=== PATIENT | female | born 1955 | race Caucasian/White ===

== ENCOUNTER 2018-03-26 16:49 | Emergency (ER) | payer OTHER ==
[~2018-03-26] VITALS: Ht 175.3 cm; Wt 118.4 kg
[~2018-03-26 16:49] MED LIST: ADVIL100 MG; ALBU90I INH; ALBU90OI; ALBU90OI INH; ALBU90OI61 INH; AZIT500 PO; Ativan1 MG PO; Atrovent Inha12.9 GM INH; BUSP10 PO; BUSP15 PO; CAND4; CAND4 PO; CEPH500 PO; CIPR500 PO; CYAN1000I; CYCL10 PO; DIAZ5 PO; DIPH50 PO; DOXY100 PO; DULO60 PO; EXTRA STRENGTH500 MG PO; Estradiol0.5 MG PO; Estradiol2 MG PO; FLUSAL2505 IH; FLUSAL5005 IH; HYDACE5 PO; HYDGUAL120 PO; IBUP200; IBUP400 PO; IBUP600 PO; IBUP800 PO; LEVFLO500 PO; LEVSOD50 PO; LEVSOD75 PO; LIPOZENE PO; LOSA25 PO; LOVA20 PO; MELO7.5 PO; METF500 PO; METO50 PO; MULVITMIND PO; NAPR500 PO; NICO7 TOP; Neurontin300 MG PO; OMEP20ER PO; OXYACE5T PO; OXYACE7.5T PO; OXYC5 PO; PARO10 PO; PHENA200 PO; PRED10 PO; PRED20 PO; Percocet 5-3251 EACH PO; Prednisone50 MG PO; Questran4 GM GT; ROXICODONE5 MG PO; RXHYDACE PO; SULTRIDS PO; TRAM50 PO; TRAZ100 PO; TRAZ150T57 PO; VENL75ER PO; Zithromax250 MG PO; [UNRECOGNIZED DRUG - OTHER]; [UNRECOGNIZED DRUG - OTHER]; [UNRECOGNIZED DRUG - OTHER] PO; [UNRECOGNIZED DRUG - REMARK]
== END 2018-03-26 19:32 | disposition home or self-care (01) ==
LOC: ER 16:49
DX: R51 Headache (principal); E11.9 Type 2 diabetes mellitus without complications; E78.00 Pure hypercholesterolemia, unspecified; F17.200 Nicotine dependence, unspecified, uncomplicated; Z88.0 Allergy status to penicillin; Z88.6 Allergy status to analgesic agent; Z79.899 Other long term (current) drug therapy; Z79.84 Long term (current) use of oral hypoglycemic drugs; Z79.52 Long term (current) use of systemic steroids
CPT/HCPCS: 96372; 99283; J0780; J1200; J1885

== ENCOUNTER → 2018-04-13 | Outpatient (CLI) | payer OTHER | END | disposition home or self-care (01) | LOC: LAB SHORT 16:14 → LAB SRC 16:14 | DX: Z51.81 Encounter for therapeutic drug level monitoring (principal); Z79.899 Other long term (current) drug therapy | CPT/HCPCS: G0480 ==

== ENCOUNTER 2018-09-24 10:03 | Day surgery (SDC) | payer OTHER ==
[~2018-09-24] VITALS: Ht 152.4 cm; Wt 117.2 kg
[~2018-09-24 10:03] MED LIST changes: +FURO20; +LOSA25; +POTA10T; +PREG100; +ROSU5; +STIOLTO RESPIMAT4 GM; +Zantac150 MG
== END 2018-09-24 14:00 | disposition home or self-care (01) ==
LOC: ORSCSDS 10:03
PROVIDERS: Internal Medicine Gastroenterology
PROC: 0DB88ZX Excision of Small Intestine, Via Natural or Artificial Opening Endoscopic, Diagnostic (ICD-10-PCS; principal; 2018-09-24 11:30)
PROC: 0DBN8ZX Excision of Sigmoid Colon, Via Natural or Artificial Opening Endoscopic, Diagnostic (ICD-10-PCS; principal; 2018-09-24 11:30)
PROC: 0DB98ZX Excision of Duodenum, Via Natural or Artificial Opening Endoscopic, Diagnostic (ICD-10-PCS; principal; 2018-09-24 11:30)
PROC: 0DBE8ZX Excision of Large Intestine, Via Natural or Artificial Opening Endoscopic, Diagnostic (ICD-10-PCS; principal; 2018-09-24 11:30)
DX: R19.4 Change in bowel habit (principal); D12.0 Benign neoplasm of cecum; K31.7 Polyp of stomach and duodenum; K64.8 Other hemorrhoids; Z86.010 Personal history of colon polyps; K92.1 Melena; G47.33 Obstructive sleep apnea (adult) (pediatric); Z80.0 Family history of malignant neoplasm of digestive organs; E78.5 Hyperlipidemia, unspecified; F41.8 Other specified anxiety disorders; J44.9 Chronic obstructive pulmonary disease, unspecified; E03.9 Hypothyroidism, unspecified; I10 Essential (primary) hypertension; F17.210 Nicotine dependence, cigarettes, uncomplicated; E66.9 Obesity, unspecified; Z68.42 Body mass index [BMI] 45.0-49.9, adult; E11.9 Type 2 diabetes mellitus without complications; Z79.84 Long term (current) use of oral hypoglycemic drugs; Z79.899 Other long term (current) drug therapy
CPT/HCPCS: 82947; 88305; J2250; J2765; J7120

== ENCOUNTER 2019-06-07 13:08 | Emergency (ER) | payer OTHER ==
[~2019-06-07] VITALS: Ht 162.6 cm; Wt 120.2 kg
== END 2019-06-07 14:05 | disposition home or self-care (01) ==
LOC: ER 13:08
DX: S50.01XA Contusion of right elbow, initial encounter (principal); E11.9 Type 2 diabetes mellitus without complications; F17.210 Nicotine dependence, cigarettes, uncomplicated; Z88.0 Allergy status to penicillin; Z88.8 Allergy status to other drugs, medicaments and biological substances; Z79.899 Other long term (current) drug therapy; Z79.84 Long term (current) use of oral hypoglycemic drugs; Z79.52 Long term (current) use of systemic steroids; W19.XXXA Unspecified fall, initial encounter
CPT/HCPCS: 73080; 99283-25

== ENCOUNTER → 2020-06-19 | Outpatient (CLI) | payer OTHER ==
[2020-06-21 16:11] LABS: HPV 16 Negative (Negative); HPV 18 Negative (Negative); HPV OTHER HR TYPES Negative (Negative)
== END ==
LOC: LAB SHORT 18:47 → LAB 18:47
PROVIDERS: Nurse Practitioner Family
DX: Z12.4 Encounter for screening for malignant neoplasm of cervix (principal)
CPT/HCPCS: 87624; G0123

== ENCOUNTER 2020-08-01 09:00 | Day surgery (SDC) | payer OTHER ==
[~2020-08-01] VITALS: Ht 162.6 cm; Wt 130.9 kg
[~2020-08-01 09:00] MED LIST changes: +BISM300CH PO; -BUSP15 PO; +CYCLOBENZAPRINE5 MG PO; +ESTRADIOL0.5 MG PO; +FLUT.05NI; -FURO20; +FURO20 PO; -LOSA25; -POTA10T; +POTA10T PO; -PREG100; +PREG100 PO; -ROSU5; +ROSU5 PO; +Ranitidine HCl150 M1 PO; +STIOLTO RESPIMAT4 G1 INH; -STIOLTO RESPIMAT4 GM; -Zantac150 MG
--- NOTE | 2020-08-01 10:58 | NUR ---
08/01/[address] NOTIFIED THAT PATIENTS BP IS 87/51. INSTRUCTIONS GIVEN TO GIVE PATIENT THE REST OF HER IV FLUIDS, WHICH IS ABOUT 100ML. WILL CONTINUE TO MONITOR BP. IF PATIENT FEELS OK, SHE CAN BE DISCHARGED HOME.
== END 2020-08-01 11:20 | disposition home or self-care (01) ==
LOC: ORSCSDS 09:00
PROVIDERS: Anesthesiology
PROC: 3E0R33Z Introduction of Anti-inflammatory into Spinal Canal, Percutaneous Approach (ICD-10-PCS; principal; 2020-08-01 10:00)
DX: M50.122 Cervical disc disorder at C5-C6 level with radiculopathy (principal); F17.210 Nicotine dependence, cigarettes, uncomplicated; E78.00 Pure hypercholesterolemia, unspecified; F41.9 Anxiety disorder, unspecified; I10 Essential (primary) hypertension; G47.33 Obstructive sleep apnea (adult) (pediatric); E66.01 Morbid (severe) obesity due to excess calories; Z68.43 Body mass index [BMI] 50.0-59.9, adult; E11.9 Type 2 diabetes mellitus without complications; J44.9 Chronic obstructive pulmonary disease, unspecified; Z79.899 Other long term (current) drug therapy; Z79.84 Long term (current) use of oral hypoglycemic drugs
CPT/HCPCS: J1040; J2250; J3010

== ENCOUNTER 2020-10-22 15:42 | Emergency (ER) | payer OTHER ==
[~2020-10-22] VITALS: Ht 162.6 cm; Wt 129.3 kg
[2020-10-22 16:41] LABS: BASOPHILS ABSOLUTE AUTO 0.04 K/mm3 (0.00-0.23); BASOPHILS PERCENT AUTO 1 % (0-2); EOSINOPHILS ABSOLUTE AUTO 0.18 K/mm3 (0.00-0.68); EOSINOPHILS PERCENT AUTO 3 % (0-6); Hematocrit 42.3 % (33.0-51.0); Hemoglobin 13.6 g/dL (11.5-16.0); IMMATURE GRAN ABSOLUTE AUTO 0.05 K/mm3 (0.00-0.10); IMMATURE GRAN PERCENT AUTO 1 % (0-1); LYMPHOCYTES ABSOLUTE AUTO 1.41 K/mm3 (0.84-5.20); LYMPHOCYTES PERCENT AUTO 23 % (21-46); MONOCYTES ABSOLUTE AUTO 0.54 K/mm3 (0.16-1.47); MONOCYTES PERCENT AUTO 9 % (4-13); Mean Corpuscular HGB 29.9 pg (26.0-34.0); Mean Corpuscular HGB Conc 32.2 g/dL (31.5-36.5); Mean Corpuscular Volume 93 fL (80-100); NEUTROPHILS ABSOLUTE AUTO 3.89 K/mm3 (1.96-9.15); NEUTROPHILS PERCENT AUTO 64 % (41-73); RDW Coefficient Variation 13.6 % (11.7-14.2); RDW Standard Deviation 46.9 fL (35.1-46.3); Red Blood Cell Count 4.55 M/mm3 (3.80-5.20); White Blood Cell Count 6.11 K/mm3 (4.00-11.30)
[2020-10-22 16:44] LABS: Alanine Aminotransfer (ALT/SGP 15 U/L (12-78); Albumin, Blood 2.9 g/dL (3.4-5.0); Albumin/Globulin Ratio 0.6 (0.8-1.8); Alk Phos 118 U/L (50-136); Anion Gap 8 mmol/L (6-16); Aspartate Aminotrans (AST/SGOT 20 U/L (12-37); Bilirubin, Total 0.5 mg/dL (0.1-1.0); Blood Urea Nitrogen 7 mg/dL (8-24); Bun/Creatinine Ratio 10.8 (12.0-20.0); CO2, Blood 24 mmol/L (21-32); Calcium, Blood 8.8 mg/dL (8.5-10.1); Chloride, Blood 103 mmol/L (98-108); Creatinine, Blood 0.65 mg/dL (0.40-1.00); Globulin, Blood 4.6 g/dL (2.2-4.0); Glomerular Filtration Rate >60 (60-); Glucose, Blood 129 mg/dL (70-99); Sodium, Blood 135 mmol/L (136-145); Total Protein, Blood 7.5 g/dL (6.4-8.2)
[2020-10-22 17:00] LABS: Mean Platelet Volume 10.6 fL (9.1-12.4); Platelet Count 242 K/mm3 (150-400)
== END 2020-10-22 17:21 | disposition home or self-care (01) ==
LOC: ER 15:42
PROVIDERS: Physician Assistant
DX: G89.18 Other acute postprocedural pain (principal); E11.9 Type 2 diabetes mellitus without complications; E78.00 Pure hypercholesterolemia, unspecified; F17.210 Nicotine dependence, cigarettes, uncomplicated; Z88.0 Allergy status to penicillin; Z88.6 Allergy status to analgesic agent; Z79.899 Other long term (current) drug therapy
CPT/HCPCS: 36415; 80053; 85025; 99283

== ENCOUNTER 2021-10-11 11:09 | Day surgery (SDC) | payer OTHER ==
[~2021-10-11] VITALS: Ht 162.6 cm; Wt 142.3 kg
== END 2021-10-11 12:50 | disposition home or self-care (01) ==
LOC: ORSCSDS 11:09
PROVIDERS: Internal Medicine Gastroenterology
PROC: 0DBL8ZX Excision of Transverse Colon, Via Natural or Artificial Opening Endoscopic, Diagnostic (ICD-10-PCS; principal; 2021-10-11 12:15)
PROC: 0DBE8ZX Excision of Large Intestine, Via Natural or Artificial Opening Endoscopic, Diagnostic (ICD-10-PCS; principal; 2021-10-11 12:15)
DX: Z12.11 Encounter for screening for malignant neoplasm of colon (principal); Z86.010 Personal history of colon polyps; K21.9 Gastro-esophageal reflux disease without esophagitis; D12.3 Benign neoplasm of transverse colon; Z87.19 Personal history of other diseases of the digestive system; Z80.0 Family history of malignant neoplasm of digestive organs; K64.8 Other hemorrhoids; K57.30 Diverticulosis of large intestine without perforation or abscess without bleeding; G47.33 Obstructive sleep apnea (adult) (pediatric); Z87.891 Personal history of nicotine dependence; J44.9 Chronic obstructive pulmonary disease, unspecified; I12.9 Hypertensive chronic kidney disease with stage 1 through stage 4 chronic kidney disease, or unspecified chronic kidney disease; N18.9 Chronic kidney disease, unspecified; E11.9 Type 2 diabetes mellitus without complications; F41.8 Other specified anxiety disorders; E66.01 Morbid (severe) obesity due to excess calories
CPT/HCPCS: 82947; 88305; J0461; J2405; J2704; J7120

== ENCOUNTER 2022-02-13 18:19 | Emergency (ER) | payer OTHER ==
[~2022-02-13] VITALS: Ht 162.6 cm; Wt 137.9 kg
[2022-02-13 19:20] LABS: BASOPHILS ABSOLUTE AUTO 0.03 K/mm3 (0.00-0.23); BASOPHILS PERCENT AUTO 1 % (0-2); EOSINOPHILS ABSOLUTE AUTO 0.12 K/mm3 (0.00-0.68); EOSINOPHILS PERCENT AUTO 3 % (0-6); Hematocrit 42.6 % (33.0-51.0); Hemoglobin 13.3 g/dL (11.5-16.0); IMMATURE GRAN ABSOLUTE AUTO 0.02 K/mm3 (0.00-0.10); IMMATURE GRAN PERCENT AUTO 1 % (0-1); LYMPHOCYTES ABSOLUTE AUTO 0.87 K/mm3 (0.84-5.20); LYMPHOCYTES PERCENT AUTO 20 % (21-46); MONOCYTES ABSOLUTE AUTO 0.36 K/mm3 (0.16-1.47); MONOCYTES PERCENT AUTO 8 % (4-13); Mean Corpuscular HGB 30.1 pg (26.0-34.0); Mean Corpuscular HGB Conc 31.2 g/dL (31.5-36.5); Mean Corpuscular Volume 96 fL (80-100); Mean Platelet Volume 10.6 fL (9.1-12.4); NEUTROPHILS PERCENT AUTO 67 % (41-73); Platelet Count 193 K/mm3 (150-400); RDW Coefficient Variation 13.4 % (11.7-14.2); Red Blood Cell Count 4.42 M/mm3 (3.80-5.20)
[2022-02-13 19:38] LABS: Albumin, Blood 3.2 g/dL (3.4-5.0); Albumin/Globulin Ratio 0.8 (0.8-1.8); Bilirubin, Total 0.4 mg/dL (0.1-1.0); Bun/Creatinine Ratio 19.8 (12.0-20.0); Calcium, Blood 9.2 mg/dL (8.5-10.1); Creatinine, Blood 0.76 mg/dL (0.40-1.00); Globulin, Blood 3.8 g/dL (2.2-4.0); Potassium, Blood 4.2 mmol/L (3.5-5.5)
== END 2022-02-13 22:47 | disposition home or self-care (01) ==
LOC: ER 18:19
PROVIDERS: Emergency Medicine
DX: R07.89 Other chest pain (principal); E11.9 Type 2 diabetes mellitus without complications; J44.9 Chronic obstructive pulmonary disease, unspecified; Z99.81 Dependence on supplemental oxygen; Z87.891 Personal history of nicotine dependence
CPT/HCPCS: 36415; 71045; 80053; 84484; 85025; 93005; 93010; 99285-25

== ENCOUNTER 2022-04-16 10:23 | Emergency (ER) | payer OTHER ==
[~2022-04-16] VITALS: Ht 162.6 cm; Wt 135.6 kg
[2022-04-16] MEDS ORDERED: NYSTATIN100000 U10 MT (11:05)
[2022-04-16] MEDS ORDERED: Zithromax250 MG PO (12:01)
[2022-05-06] MEDS ORDERED: Cleocin HCl300 MG PO (23:08)
[2022-05-06] MEDS ORDERED: Monodox100 MG PO (23:08)
== END 2022-04-16 12:22 | disposition home or self-care (01) ==
LOC: ER 10:23
DX: J44.1 Chronic obstructive pulmonary disease with (acute) exacerbation (principal); B37.0 Candidal stomatitis; E11.9 Type 2 diabetes mellitus without complications; F17.210 Nicotine dependence, cigarettes, uncomplicated; Z88.6 Allergy status to analgesic agent; Z88.0 Allergy status to penicillin; Z79.84 Long term (current) use of oral hypoglycemic drugs; Z79.899 Other long term (current) drug therapy
CPT/HCPCS: 71046; 99283-25

== ENCOUNTER → 2022-07-07 | Outpatient (CLI) | payer OTHER ==
[~2022-07-07] MED LIST changes: +Cleocin HCl300 MG PO; +Monodox100 MG PO; +NYSTATIN100000 U10 MT
== END | disposition home or self-care (01) ==
LOC: LAB 12:15 → LAB SHORT 12:15
DX: R19.5 Other fecal abnormalities (principal)
CPT/HCPCS: 82653

== ENCOUNTER 2022-09-14 10:43 | Emergency (ER) | payer OTHER ==
[~2022-09-14] VITALS: Ht 162.6 cm; Wt 130.6 kg
[2022-09-14] MEDS ORDERED: DOXY100 PO (14:23)
== END 2022-09-14 14:32 | disposition home or self-care (01) ==
LOC: ER 10:43
DX: L02.214 Cutaneous abscess of groin (principal); E11.9 Type 2 diabetes mellitus without complications; F17.210 Nicotine dependence, cigarettes, uncomplicated; Z88.0 Allergy status to penicillin; Z79.899 Other long term (current) drug therapy
CPT/HCPCS: A9270

== ENCOUNTER 2022-09-17 08:42 | Day surgery (SDC) | payer OTHER ==
[~2022-09-17] VITALS: Ht 162.6 cm; Wt 129.0 kg
[2022-09-17] MEDS ORDERED: Aspir 8181 MG PO (09:01)
--- NOTE | 2022-09-17 09:17 | NUR ---
CALL LIGHT IN REACH; PT'S HAS VISITORS IN ROOM.
--- NOTE | 2022-09-17 13:28 | NUR ---
PT RETURNED TO RECOVERY ROOM IN BED. RIGHT RADIAL TR BAND SITE SOFT NON-TENDER WITH NO HEMATOMA, NO PULSATILE BLEEDING AND WRIST BOARD IN PLACE. PT DENIES CHEST PAIN. CALL LIGHT IN REACH.
--- NOTE | 2022-09-17 13:35 | NUR ---
NO CHANGES TO R FEM VEIN SITE OR R RADIAL TR BAND SITE.
--- NOTE | 2022-09-17 13:35 | NUR ---
FAMILY BROUGHT TO THE BEDSIDE, CALL LIGHT IN REACH. [facility]MS[facility] CARE OF PATIENT, SBAR RECEIVED FROM ROMEL ALTMAN.
--- NOTE | 2022-09-17 14:02 | NUR ---
PATIENT ASSISTED TO SITTING UP IN THE BED AND LUNCH TRAY SERVED. CONTINUE TO MONITOR.
--- NOTE | 2022-09-17 14:30 | NUR ---
1430 BEGAN TAKING AIR OUT TR BAND. NO BLEEDING NOTED, NO HEMATOMA.
--- NOTE | 2022-09-17 15:12 | NUR ---
PIV REMOVED FROM THE LEFT AC. CATH TIP INTACT. PRESSURE DRESSING APPLIED. REVIEWED DISCHARGE INSTRUCTIONS WITH THE PATIENT AND FAMILY. COPIES GIVEN AND PATIENT ASSISTED UP TO THE BEDSIDE COMMODE. PATIENT ALSO DRESSED WITH ASSISTANCE WITH FAMILY.
--- NOTE | 2022-09-17 15:18 | NUR ---
PATIENT UP TO THE RESTROOM WITH OXYGEN.
--- NOTE | 2022-09-17 15:32 | NUR ---
TR BAND REMOVED AND SITE CLEANSED, CLOTH DOT PLACED. ARM BOARD TO RIGHT ARM. PT TO PRIVATE VEHICLE PER W/C.
== END 2022-09-17 15:35 | disposition home or self-care (01) ==
LOC: MHTC 08:42
DX: I25.10 Atherosclerotic heart disease of native coronary artery without angina pectoris (principal); R07.89 Other chest pain; I47.20 Ventricular tachycardia, unspecified; R55 Syncope and collapse; Z87.891 Personal history of nicotine dependence; E78.5 Hyperlipidemia, unspecified; E03.9 Hypothyroidism, unspecified; I48.0 Paroxysmal atrial fibrillation; I47.1 Supraventricular tachycardia; J44.9 Chronic obstructive pulmonary disease, unspecified; Z88.0 Allergy status to penicillin
CPT/HCPCS: 76937; 93458; 99152; 99153; C1769; C1887; C1894; J1644; J2250; J3010; J7030; J7050; Q9967

== ENCOUNTER → 2023-01-20 | Outpatient (CLI) | payer OTHER ==
[~2023-01-20] MED LIST changes: +Aspir 8181 MG PO
== END | disposition home or self-care (01) ==
LOC: LAB SHORT 14:50 → LAB 14:50
DX: E11.42 Type 2 diabetes mellitus with diabetic polyneuropathy (principal)
CPT/HCPCS: 82043